=== PATIENT | male | born 1955 | race Caucasian/White ===

== ENCOUNTER → 2017-01-02 | Day surgery (SDC) | payer OTHER ==
[~2017-01-02] VITALS: Ht 177.8 cm; Wt 81.0 kg
[~2017-01-02] MED LIST: *RESP: ALBUTEROL 2.5 MG/3 ML NEB (PRN) PERIprocedural Use ONLY NEB ONE; *morphine SULFATE 8 MG/ML PERIprocedure ONLY ONE; ADVA250A INH; ALBU.5I NEB; BACL20TA PO; BELLADONNA ALKALOIDS/OPIUM 60 MG SUPP RECTAL ONE; BUSP10TA PO; CHLORHEXIDINE GLUCONATE 2 % 1 PACK (2 CLOTHS) TOPICAL PRN; DO NOT ADM ANY ANTICOAGULANT DRUGS PRN; FAMOTIDINE 20 MG/2 ML VIAL ONE; GABA400C5 PO; HYDR-3366 PO; INSULIN HUMAN REGULAR 1,000 UNITS/10 ML VIAL SQ PRN; IOHEXOL 350 MG/ML 50 ML BTL (for RAD DIAG) IV ONE; LACTATED RINGER'S 1000 ML IV PRN; LAMI1GEL TOPICAL; LEDI1TAB PO; LORA-392 PO; LORA-520 PO; MELA3TAB25 PO; METOPROLOL TARTRATE 25 MG TAB PO PRN; MIDAZOLAM HCL 2 MG/2 ML VIAL ONE; MOME17I EACH NARE; MUCI60TA9 PO; OMEP20CA2 PO; ONDANSETRON HCL 4 MG/2 ML VIAL IV PUSH ONE; ONDANSETRON HCL 4 MG/2 ML VIAL IV PUSH PRN; POVIDONE IODINE 5% (ANTISEPSIS KIT) 4 APPLICATIONS EACH NARE PRN; PROPOFOL 200 MG/20 ML AMP IV ONE; SODIUM CHLORID 0.9% 500 ML IV PRN; TUBE5INJ3 IJ; XARE20TA PO; ZANT150T2 PO; ZOLO100T PO; ceFAZolin 1,000 MG/NS 100 ML IV SCH; ePHEDrine/NS 25 MG/5 ML SYR IV ONE; fentaNYL CITRATE 250 MCG/5 ML AMP ONE
[2017-01-02 06:26] VITALS: BP 118/72; PULSE 59; RESP 20; TEMP 98.2; O2SAT 93
[2017-01-02 06:36] LABS: AUTOMATED NEUTROPHIL # 3.5 TH/MM3 (1.8-7.7); BASOPHIL # 0.1 TH/MM3 (0-0.2); BASOPHIL % 0.9 % (0.0-2.0); EOSINOPHIL # 0.2 TH/MM3 (0-0.4); EOSINOPHIL % 3.4 % (0.0-4.0); HEMATOCRIT 48.1 % (39.0-51.0); HEMO FLAGS DIFF FINAL; LYMPH % 26.6 % (9.0-44.0); LYMPHOCYTE # 1.6 TH/MM3 (1.0-4.8); MEAN CELL VOLUME 90.9 FL (80.0-100.0); MEAN CORPUSCULAR HEMOGLOBIN 30.7 PG (27.0-34.0); MEAN CORPUSCULAR HGB CONC 33.8 % (32.0-36.0); MONO % 11.1 % (0.0-8.0); PLATELET COUNT 251 TH/MM3 (150-450); RED BLOOD COUNT 5.29 MIL/MM3 (4.50-5.90); RED CELL DISTRIBUTION WIDTH 14.9 % (11.6-17.2); WHITE BLOOD COUNT 6.1 TH/MM3 (4.0-11.0)
--- NOTE | 2017-01-02 08:23 | PD.OP ---
Operative Report Date of Surgery: Jan 02, 2017 Preoperative Diagnosis: Left hydronephrosis with 7 mm UPJ calculus Postoperative Diagnosis: Same Procedure: Cystoscopy left retrograde study with left double-J stent insertion Anesthesia: Gen.LMA Surgeon: Kiet Bob Nut Sorter Operator(s): None Resident Surgeon: None Operation and Findings: 61-year-old male with findings of a 7 mm UPJ stone with left hydronephrosis. Patient elected to undergo cystoscopy with left retrograde study left double-J stent insertion. Risk and benefits were discussed preoperatively he is willing to proceed. The patient was brought to the operating room and placed in the dorsal lithotomy position. He was prepped and draped in usual sterile fashion preprocedure antibiotics were given. General LMA anesthesia was administered. 22 Croatian cystoscope was inserted in the bladder and chapman cystoscopy did not reveal any abnormalities. Left ureteral orifice was identified and a 5 Croatian open-ended catheter inserted in the left ureteral orifice. Left retrograde study was performed demonstrating stone at the area of the UPJ. A 0.35 sensor wire was passed through the open-ended catheter with a good curl in the kidney. This was left in position. A 6 Croatian 22 cm left double-J stent was then passed over the wire leaving it in good position with a curl in the kidney and in the bladder. He tolerated the procedure well. In a few weeks he will undergo cystoscopy with left ureteroscopy and laser lithotripsy with stone extraction. He will continue on his anticoagulation medication. Kiet Bob DO Jan 02, 2017 08:23
--- NOTE | 2017-01-02 08:55 | EKG ---
Date Performed: 01/02/2017 Time Performed: 06:20:56 PTAGE: 61 years EKG: Sinus rhythm NONSPECIFIC T-WAVE ABNORMALITY BORDERLINE ECG NO PREVIOUS TRACING DOCTOR: Winston Driscoll Interpretating Date/Time 01/02/2017 08:52:36
[2017-01-02 10:30] VITALS: BP 153/77; PULSE 81; RESP 20; TEMP 98; O2SAT 91
== END | disposition home or self-care (01) ==
LOC: HSDC 05:44
PROVIDERS: ATTEND Urology
DX: N13.2 Hydronephrosis with renal and ureteral calculous obstruction (principal); R94.31 Abnormal electrocardiogram [ECG] [EKG]; J44.9 Chronic obstructive pulmonary disease, unspecified
CPT/HCPCS: 00910; 52332; 74420; 85025; 93005; 94664; C1769; C2617; J0690; J2250; J2270; J2405; J3010; J7120; J7613; Q9967

== ENCOUNTER → 2017-01-30 | Day surgery (SDC) | payer OTHER ==
[~2017-01-30] VITALS: Ht 177.8 cm; Wt 88.5 kg
[~2017-01-30] MED LIST changes: +ACETAMINOPHEN/HYDROcodone 325 MG/10 MG TAB ONE; +AMPICILLIN 1 GM/NS 100 ML IV PRN; -FAMOTIDINE 20 MG/2 ML VIAL ONE; +FUROSEMIDE 20 MG/2 ML VIAL IV PUSH ONE; +FUROSEMIDE 40 MG/4 ML VIAL ONE; +GENTAMICIN INJ 240 MG in SODIUM CHLORIDE 0.9% INJ 100 ML IV PRN; +GLYCOPYRROLATE 0.4 MG/2 ML VIAL IV ONE; -IOHEXOL 350 MG/ML 50 ML BTL (for RAD DIAG) IV ONE; +IOHEXOL 350 MG/ML 50 ML BTL (for RAD DIAG) OTHER ONE; +LACTATED RINGER'S 1000 ML INJ 1,000 ML IV ONE; +LIDOCAINE HCL 1% 50 ML VIAL ONE; -MELA3TAB25 PO; +NEOSTIGMINE 3 MG/3 ML SYR IV ONE; +PHENYLEPH/NS 1000 MCG/10 ML SYR IV ONE; +ROCURONIUM INJ 50 MG/5 ML SYRINGE IV PUSH ONE; +SODIUM CHLOR 0.9% 1000 ML INJ 1,000 ML IV ONE; -ceFAZolin 1,000 MG/NS 100 ML IV SCH; -fentaNYL CITRATE 250 MCG/5 ML AMP ONE
--- NOTE | 2017-01-30 09:57 | PD.OP ---
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 The patient underwent cystoscopy with left double-J stent insertion approximately 1 month ago and today presents for cystoscopy with left ureteroscopy laser lithotripsy and stone extraction with left double-J stent exchange. Patient remained on his left toe throughout the entire operative. Due to his history of DVT/PE. Patient is brought to the operating room identified by myself as Ryland Simpson. He's placed the dorsal lithotomy position, prepped and draped in usual sterile fashion, received preprocedure antibiotics and general endotracheal tube anesthesia was administered. 22 Bangladeshi cystoscope was inserted in the bladder and chapman cystoscopy did not reveal any abnormalities. The left ureteral stent was identified and using the alligator grasper is brought out to the urethral meatus. A 0.35 sensor wires and passed through the stent in place in the kidney with a good curl. The stent was then removed. The cystoscope was backloaded over the wire and a 5 Bangladeshi opening catheter was inserted over the wire and the wire was removed. Retrograde study was performed demonstrating stone the proximal ureter. Leaving the wire in place, the rigid ureteroscope was passed along the wire and the stone was visualized. Using a 200 laser fiber with a setting of 8 and 800 the stone was then fragmented. The nitinol basket was then used to retrieve the multiple stone fragments. Once it appeared that the ureter was clear of stone, another retrograde study was performed demonstrating possible filling defect in the midpole calyx. A navigator ureteral access sheath was then passed over the wire and left in good position. The flexible scope was then passed up through the ureter and into the kidney and no stones where visualized within the left kidney. A 0.35 sensor wire was then passed through the ureteral access sheath with a good curl in the kidney. The ureteral access sheath was then removed. The cystoscope was then backloaded over a wire and a 6 Bangladeshi 22 cm Bard stent was placed with a good curl in the kidney and a good curl in the bladder. The stent will stay in for 6 weeks and the patient will follow-up in the office for cystoscopy with stent removal at that time. A CT scan without contrast will be ordered prior to his office visit. The patient was awoken and extubated transferred to remain stable condition. Kiet Bob DO Jan 30, 2017 09:57
[2017-01-30 13:45] VITALS: BP 111/48; PULSE 94; RESP 18; TEMP 96.6; O2SAT 94
== END | disposition home or self-care (01) ==
LOC: HSDC 05:30
PROVIDERS: ATTEND Urology
DX: N20.1 Calculus of ureter (principal); I25.10 Atherosclerotic heart disease of native coronary artery without angina pectoris; I25.2 Old myocardial infarction; J44.9 Chronic obstructive pulmonary disease, unspecified; G62.9 Polyneuropathy, unspecified; K21.9 Gastro-esophageal reflux disease without esophagitis; B19.20 Unspecified viral hepatitis C without hepatic coma; D68.9 Coagulation defect, unspecified; F32.9 Major depressive disorder, single episode, unspecified; Z86.73 Personal history of transient ischemic attack (TIA), and cerebral infarction without residual deficits; Z87.891 Personal history of nicotine dependence; Z86.718 Personal history of other venous thrombosis and embolism; Z79.891 Long term (current) use of opiate analgesic; Z79.51 Long term (current) use of inhaled steroids; Z79.899 Other long term (current) drug therapy
CPT/HCPCS: 00873; 52356; 74420; 82370; 88300; 94664; C1769; J0290; J1580; J1940; J2250; J2270; J2370; J2405; J2710; J3010; J7030; J7120; J7613; Q9967

== ENCOUNTER → 2017-03-13 | Day surgery (SDC) | payer OTHER ==
[~2017-03-13] VITALS: Ht 177.8 cm; Wt 89.5 kg
[~2017-03-13] MED LIST changes: +*MEPERIDINE 25 MG INJ VIAL PERIprocedural Use ONLY ONE; -*RESP: ALBUTEROL 2.5 MG/3 ML NEB (PRN) PERIprocedural Use ONLY NEB ONE; -*morphine SULFATE 8 MG/ML PERIprocedure ONLY ONE; +ACETAMINOPHEN 1000 MG/100 ML 100 ML IV ONE; -ACETAMINOPHEN/HYDROcodone 325 MG/10 MG TAB ONE; +DEXAMETHASONE SOD PHOS 4 MG/ML VIAL IV ONE; -FUROSEMIDE 20 MG/2 ML VIAL IV PUSH ONE; -FUROSEMIDE 40 MG/4 ML VIAL ONE; -GLYCOPYRROLATE 0.4 MG/2 ML VIAL IV ONE; +HYDROmorphone HCL PF 1 MG/ML VIAL IV PRN; -IOHEXOL 350 MG/ML 50 ML BTL (for RAD DIAG) OTHER ONE; +KETOROLAC TROMETHAMINE 10 MG TAB PO PRN; -LACTATED RINGER'S 1000 ML INJ 1,000 ML IV ONE; -LAMI1GEL TOPICAL; -LIDOCAINE HCL 1% 50 ML VIAL ONE; +LIDOCAINE HCL 1% PF 5 ML AMPULE OTHER ONE; +MIDAZOLAM HCL 2 MG/2 ML VIAL IV ONE; -MIDAZOLAM HCL 2 MG/2 ML VIAL ONE; +MORP1TAB24 PO; -NEOSTIGMINE 3 MG/3 ML SYR IV ONE; -PHENYLEPH/NS 1000 MCG/10 ML SYR IV ONE; -ROCURONIUM INJ 50 MG/5 ML SYRINGE IV PUSH ONE; -SODIUM CHLOR 0.9% 1000 ML INJ 1,000 ML IV ONE; -ZANT150T2 PO
--- NOTE | 2017-03-13 06:04 | RADRPT ---
EXAM DATE/TIME: 03/13/2017 05:43 [facility] COMPARISON: No previous studies available for comparison. INDICATIONS : Pre-op for cysto, left renal stones. MEDICAL HISTORY : None. SURGICAL HISTORY : None. ENCOUNTER: Initial ACUITY: 1 day PAIN SCORE: 0/10 LOCATION: Left flank FINDINGS: Supine view of the abdomen was performed. Left-sided nephroureteral stent in good position. Subtle ca lculi on the left. The abdominal bowel gas pattern is normal. No abnormal masses, calcifications, or organomegaly is seen. The osseous structures are unremarkable. CONCLUSION: Subtle left renal calculi not well-seen. Anthony Lynn MD on March 13, 2017 at 6:02 Board Certified Radiologist. This report was verified electronically.
[2017-03-13 06:28] LABS: AUTOMATED NEUTROPHIL # 3.9 TH/MM3 (1.8-7.7); BASOPHIL # 0.1 TH/MM3 (0-0.2); BASOPHIL % 0.8 % (0.0-2.0); EOSINOPHIL # 0.2 TH/MM3 (0-0.4); HEMATOCRIT 40.6 % (39.0-51.0); HEMOGLOBIN 13.9 GM/DL (13.0-17.0); LYMPH % 23.7 % (9.0-44.0); LYMPHOCYTE # 1.5 TH/MM3 (1.0-4.8); MEAN CELL VOLUME 87.7 FL (80.0-100.0); MEAN CORPUSCULAR HGB CONC 34.2 % (32.0-36.0); MEAN PLATELET VOLUME 8.6 FL (7.0-11.0); MONO % 10.2 % (0.0-8.0); MONOCYTE # 0.6 TH/MM3 (0-0.9); NEUT % 62.3 % (16.0-70.0); PLATELET COUNT 201 TH/MM3 (150-450); RED BLOOD COUNT 4.63 MIL/MM3 (4.50-5.90); RED CELL DISTRIBUTION WIDTH 14.2 % (11.6-17.2); WHITE BLOOD COUNT 6.3 TH/MM3 (4.0-11.0)
--- NOTE | 2017-03-13 08:32 | PD.OP ---
Operative Report Date of Surgery: Mar 13, 2017 Preoperative Diagnosis: History of left ureteral calculi Postoperative Diagnosis: Same Procedure: Cystoscopy with left retrograde study, left ureteroscopy with left double-J stent removal Anesthesia: Gen. LMA Surgeon: Kiet Bob Sales Training Representative(s): None Resident Surgeon: None Operation and Findings: 61-year-old male who underwent cystoscopy with left ureteroscopy laser lithotripsy and stone extraction approximate 6 weeks. Mild extravasation of contrast was noted on the prior study due to an impacted stone. Patient refused to have the stent removed in the office. Plan was then to take the patient to the operating room to undergo cystoscopy with left retrograde study with left ureteroscopy and possible stone extraction. Risk and benefits were discussed preoperatively and he was willing to proceed. Patient remained on his Xarleto given his history of blood clots. Patient was brought to the operating room and identified by myself as Ryland Simpson. He was placed in dorsal lithotomy position, prepped and draped in usual sterile fashion, received preprocedure antibiotics and general LMA anesthesia was administered. 22 Mongolian scope was inserted in the bladder chapman cystoscopy did not reveal any abnormalities. The left ureteral stent was identified and using the alligator grasper it was brought out to the urethral meatus. A 0.35 sensor wire was then passed up into the left collecting system and the stent was removed over the wire. The cystoscope was backloaded and a 5 Mongolian opening catheter was inserted over the wire and a retrograde study was performed. No filling defects within the collecting system or ureter was identified. It was no evidence of any extravasation. The flexible ureteroscope was then passed up the left ureter and no residual stone fragments were identified. The bladder was evacuated and he was awoken and transferred to the recovery room in stable condition. He tolerated the procedure well. Kiet Bob DO Mar 13, 2017 08:32
[2017-03-13 10:00] VITALS: BP 140/76; PULSE 79; RESP 18; TEMP 98; O2SAT 93
== END | disposition home or self-care (01) ==
LOC: HSDC 05:16
PROVIDERS: ATTEND Urology
DX: N20.1 Calculus of ureter (principal); N20.0 Calculus of kidney; I10 Essential (primary) hypertension; J44.9 Chronic obstructive pulmonary disease, unspecified; K21.9 Gastro-esophageal reflux disease without esophagitis; B19.20 Unspecified viral hepatitis C without hepatic coma; F31.9 Bipolar disorder, unspecified
CPT/HCPCS: 00910; 52310; 74000; 74420; 85025; C1769; J0131; J0290; J1100; J1580; J2175; J2250; J2405; J3010; J7120